=== PATIENT | male | born 1940 ===

== ENCOUNTER 2018-03-21 10:55 | Day surgery (SDC) | payer OTHER ==
[~2018-03-21] VITALS: Ht 185.4 cm; Wt 106.0 kg
[2018-03-21] VITALS (7 sets, daily range): BP systolic 96–118; BP diastolic 43–60
[2018-03-21] MEDS ORDERED: normal saline 1000ml 1,000 ML IV SCH ×2 (11:15→13:24)
[2018-03-21] MEDS ORDERED: HYDR-4069 PO (12:34)
[2018-03-21] MEDS ORDERED: HEPA1DIS10 (12:34)
[2018-03-21] MEDS ORDERED: FAMO20TA8 PO (12:34)
[2018-03-21] MEDS ORDERED: ZOL50T PO (12:34)
[2018-03-21] MEDS ORDERED: BUME1TAB4 PO (12:34)
[2018-03-21] MEDS ORDERED: ISOS10TA2 PO (12:34)
[2018-03-21] MEDS ORDERED: CINA30TA PO (12:34)
[2018-03-21] MEDS ORDERED: ALLO100T PO (12:34)
[2018-03-21] MEDS ORDERED: METO5TAB7 PO (12:34)
[2018-03-21] MEDS ORDERED: PRAV40TA3 PO (12:34)
[2018-03-21] MEDS ORDERED: POLY17PO10 PO (12:34)
[2018-03-21] MEDS ORDERED: LIDOcaine 1%/PF 5ML 10 MG/ML VIAL ONE (13:17)
[2018-03-21] MEDS ORDERED: heparin 1,000unit/ml 10ml vial 10 ML ONE (13:17)
[2018-03-21] MEDS ORDERED: fentaNYL/PF 50MCG/1 ML 2ML syringe ONE (13:18)
[2018-03-21] MEDS ORDERED: midazolam 2 mg/2 ml injection ONE (13:18)
[2018-03-21 13:20] LABS: INR 1.2 INR; PARTIAL THROMBOPLASTIN TIME 29 SECONDS (22-32); PROTHROMBIN TIME 12.5 SECONDS (9.0-12.0)
[2018-03-21] MEDS ORDERED: LIDOcaine 1%/PF 5ML 10 MG/ML VIAL SQ ONE (13:25)
[2018-03-21] MEDS ORDERED: midazolam 2 mg/2 ml injection IV PRN (13:25)
[2018-03-21] MEDS ORDERED: fentaNYL/PF 50MCG/1 ML 2ML syringe IV PRN (13:25)
[2018-03-21] MEDS ORDERED: heparin 1,000 units/ml 10ml inj ICATH ONE (13:25)
== END 2018-03-21 15:47 | disposition home or self-care (01) ==
LOC: SSTAY O 10:55 → EDBD 10:55 → SSTAY O 15:47
PROVIDERS: ATTEND Radiology Diagnostic Radiology
DX: I13.0 Hypertensive heart and chronic kidney disease with heart failure and stage 1 through stage 4 chronic kidney disease, or unspecified chronic kidney disease (principal); N18.4 Chronic kidney disease, stage 4 (severe); I50.9 Heart failure, unspecified; I48.91 Unspecified atrial fibrillation; E78.5 Hyperlipidemia, unspecified; J44.9 Chronic obstructive pulmonary disease, unspecified; K21.9 Gastro-esophageal reflux disease without esophagitis; E21.4 Other specified disorders of parathyroid gland; F32.9 Major depressive disorder, single episode, unspecified; Z87.2 Personal history of diseases of the skin and subcutaneous tissue; Z95.1 Presence of aortocoronary bypass graft; Z95.0 Presence of cardiac pacemaker; Z87.891 Personal history of nicotine dependence; Z79.899 Other long term (current) drug therapy; Z98.890 Other specified postprocedural states
CPT/HCPCS: 36415; 36558; 76937; 77001; 85610; 85730; 99152; 99153; C1750; J1644; J2001; J2250; J3010; J7030; A4620; A9270; C1894